=== PATIENT | female | born 2000 | race Two or more races ===

== ENCOUNTER 2023-06-11 12:12 | Emergency (ER) | payer MEDICAID ==
[~2023-06-11] VITALS: Ht 162.6 cm; Wt 50.3 kg
[2023-06-11 12:23] VITALS: BP 124/67; TEMP 98.4; O2SAT 100
[2023-06-11] MEDS ORDERED: KETOROLAC TROMETHAMINE INJ 60 MG/2 ML VIAL IM ONE (13:00)
[2023-06-11] MEDS ORDERED: KETOROLAC TROMETHAMINE INJ 30 MG/ML VIAL ONE (13:01)
== END 2023-06-11 13:15 | disposition home or self-care (01) ==
LOC: ER 12:12
DX: M79.671 Pain in right foot (principal); Z60.2 Problems related to living alone
CPT/HCPCS: 99283; 96372; J1885